=== PATIENT | female | born 1990 | race Caucasian/White ===

== ENCOUNTER → 2018-09-17 | Outpatient (CLI) | payer OTHER | LOC: EDBD 14:50 → OD 14:50 | PROVIDERS: ATTEND Family Medicine | DX: E03.9 Hypothyroidism, unspecified (principal); Z11.1 Encounter for screening for respiratory tuberculosis | CPT/HCPCS: 36415; 84443; 86480 ==

== ENCOUNTER → 2019-08-13 | Outpatient (CLI) | payer OTHER | LOC: OD 12:22 | PROVIDERS: ATTEND Family Medicine | DX: J30.9 Allergic rhinitis, unspecified (principal); E03.9 Hypothyroidism, unspecified | CPT/HCPCS: 36415; 82785; 84443; 86003 ==

== ENCOUNTER → 2020-01-15 | Outpatient (CLI) | payer OTHER | LOC: OD 15:59 | PROVIDERS: ATTEND Family Medicine | DX: Z01.84 Encounter for antibody response examination (principal); Z11.1 Encounter for screening for respiratory tuberculosis | CPT/HCPCS: 36415; 86480; 86706 ==